=== PATIENT | male | born 1985 | race Hispanic/Latino ===

== ENCOUNTER 2018-08-21 20:32 | Emergency (ER) | payer OTHER ==
[2018-08-21 20:43] VITALS: BP 140/51
--- NOTE | 2018-08-21 20:54 | Emergency Department Report ---
ED Fall HPI - General Chief Complaint: Seizure Stated Complaint: SEIZURE/LAC TO FOREHEAD Time Seen by Provider: 08/21/18 20:36 Source: patient, EMS Mode of arrival: Stretcher - History of Present Illness Initial Comments: Mr. Beasley is a 32 yo male with hx of opioid abuse and anger issues who presents with fall, syncope, dizziness. He feels that the gabapentin high dose 600 mg TID was making him dizzy. He then fell today. He does not remember. He has facial lacerations. He has hx of long QT syndrome. Has not had any issues in 10 years. Previously took a beta-gabriela. Not currently taking this medication now. He is now at a [facility]. Complaint: fall -: Sudden, This evening Fall From: standing When Fall Occurred: just prior to arrival Fall Witnessed: yes, by living facility s Place Fall Occurred: other (detox center) Loss of Consciousness: yes Prolonged Down Time?: no Symptoms Prior to Fall: lightheadedness, dizziness Location: head Severity: mild - Related Data Allergies Allergy/AdvReac Type Severity Reaction Status Date / Time No Known Allergies Allergy Unverified 08/21/18 20:38 ED Review of Systems ROS: Stated complaint: SEIZURE/LAC TO FOREHEAD Other details as noted in HPI Constitutional: denies: fever, malaise Respiratory: denies: cough, shortness of breath Cardiovascular: denies: chest pain, palpitations Gastrointestinal: denies: abdominal pain, nausea, vomiting Skin: denies: rash, lesions ED Past Medical Hx - Past Medical History Previous Medical History?: Yes Hx Psychiatric Treatment: Yes (Depression) - Surgical History Past Surgical History?: Yes Additional Surgical History: Spinal fusion to L4 and L5 - Social History Smoking Status: Never Smoker ED Physical Exam - General Limitations: No Limitations General appearance: alert, in no apparent distress - Head Head exam: Present: normocephalic, other (2 cm left eyelid laceration 2 cm superficial left cheek laceration) - Eye Eye exam: Present: normal appearance - ENT ENT exam: Present: mucous membranes moist - Neck Neck exam: Present: normal inspection, full ROM - Respiratory Respiratory exam: Present: normal lung sounds bilaterally. Absent: respiratory distress, wheezes, rales, rhonchi - Cardiovascular Cardiovascular Exam: Present: regular rate, normal rhythm, normal heart sounds. Absent: systolic murmur, diastolic murmur, rubs, gallop - GI/Abdominal GI/Abdominal exam: Present: soft, normal bowel sounds. Absent: distended, tenderness, guarding, rebound - Rectal Rectal exam: Present: deferred - Extremities Exam Extremities exam: Present: normal inspection - Back Exam Back exam: Present: normal inspection - Neurological Exam Neurological exam: Present: alert, oriented X3, CN II-XII intact. Absent: motor sensory deficit - Psychiatric Psychiatric exam: Present: normal affect, normal mood - Skin Skin exam: Present: warm, dry, intact, normal color. Absent: rash ED Course Vital Signs 08/21/18 20:38 Temperature 98.2 F Pulse Rate 103 H Respiratory 20 Rate Blood Pressure 140/51 O2 Sat by Pulse 97 Oximetry ED Medical Decision Making - Medical Decision Making 1. closed head injury with LOC and facial contusion, MR. Beasley declined CT of head or face. He understands the risk of intracranial hemorrhage and facial fracture 2. fall, vasovagal syncope vs polypharmacy, no indication of seizure 3. facial lacerations Critical care attestation.: If time is entered above; I have spent that time in minutes in the direct care of this critically ill patient, excluding procedure time. ED Disposition Clinical Impression: Closed head injury, Facial contusion, Facial laceration, Fall Disposition: [id number] Is pt being admited?: No Does the pt Need Aspirin: No Condition: Stable Instructions: Minor Head Injury (ED), Skin Adhesive Care (ED)
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
== END 2018-08-21 23:03 | disposition designated cancer center or children's hospital (05) ==
LOC: ED 20:32
DX: S00.83XA Contusion of other part of head, initial encounter (principal); S00.81XA Abrasion of other part of head, initial encounter; F32.9 Major depressive disorder, single episode, unspecified; W19.XXXA Unspecified fall, initial encounter; Y93.89 Activity, other specified; Y92.410 Unspecified street and highway as the place of occurrence of the external cause; Y99.8 Other external cause status
CPT/HCPCS: 70450; 70486; 93005; 93010